=== PATIENT | female | born 1985 | race Caucasian/White ===

== ENCOUNTER 2019-12-20 14:43 | Emergency (ER) | payer OTHER ==
[~2019-12-20] VITALS: Ht 165.1 cm; Wt 82.0 kg
--- NOTE | 2019-12-20 15:12 | RAD ---
Three-view right wrist HISTORY: Pain status post fall AP lateral oblique views Visualized osseous and appear normal. IMPRESSION: No acute findings. Electronically signed by: Abdelrahman Fernando III, MD (12/20/2019 3:09 PM) [id number]
[2019-12-20 15:35] VITALS: BP 126/79
--- NOTE | 2019-12-20 15:52 | PHYS DOC ---
General Adult EDM: Chief Complaint: WRIST PAIN HPI: HPI: 34-year-old female past medical history significant for restless leg syndrome, asthma and GERD, presents to the ED with complaints of (dominant) right hand wrist pain after patient had an accidental fall at work, landed backwards onto flexed wrist. Complains of pain to her right lateral distal wrist. No prior injury surgery to this joint. Takes no AC. ROS: No associated fever, chills, deformity, sensory or neurologic deficit, skin lesion or laceration, elbow pain, shoulder pain, head injury, dyspnea, sore throat, cough, nausea, vomiting, chest pain, loss of consciousness not, no neck pain or midline back pain. Physical Exam: PE: Constitutional: Well developed, well nourished, no acute distress, non-toxic appearance. [] HENT: Normocephalic, atraumatic, bilateral external ears normal, oropharynx mo ist, no oral exudates, nose normal. No signs of head trauma, no midline neck pain Eyes: PERRLA, EOMI, conjunctiva normal, no discharge. [] Neck: Normal range of motion, no tenderness, supple, no stridor. [] Cardiovascular:Heart rate regular rhythm, no murmur [] Lungs & Thorax: Bilateral breath sounds clear to auscultation [] Abdomen: Bowel sounds normal, soft, no tenderness, no masses, no pulsatile m asses. [] Skin: Warm, dry, no erythema, no rash. [] Back: No tenderness, no CVA tenderness. [] Extremities: No tenderness, no cyanosis, no clubbing, right dorsal wrist swelling with right lateral tenderness to palpation over radius, no scaphoid or lunate tenderness, wrist/fingers with full range of motion, no pain at the elbow Neurologic: Alert and oriented X 3, normal motor function, normal sensory function, no focal deficits noted. [] Psychologic: Affect normal, judgement normal, mood normal. [] EKG: EKG: [] Radiology/Procedures: Radiology/Procedures: IMAGING REPORT Signed PATIENT: TACHO CHILEL ACCOUNT: [id number] : 1985 LOCATION: ER AGE: 34 SEX: F EXAM STATUS: REG ER ORD. PHYSICIAN: MARYBETH PICKARD DO REASON: fall PROCEDURE: WRIST 3V RIGHT Three-view right wrist HISTORY: Pain status post fall AP lateral oblique views Visualized osseous and appear normal. IMPRESSION: No acute findings. Electronically signed by: Anette Yañez III, MD (12/20/2019 3:09 PM) [id number] DICTATED AND SIGNED BY: ANETTE YAÑEZ III, MD DATE: 12/20/19 1509 CC: CHANG SCHROEDER MD; MARYBETH PICKARD DO ~ Impressions: Concern for right dominant hand wrist sprain, no fracture on x-ray. For splint given to patient and recommended repeat imaging if pain persists after 7 to 10 days. Also recommended hand surgery outpatient if pain persists. Strict ED return precautions given for compartment syndrome, neurologic deficits or severe pain. All of patient's questions were answered and she was stable at time of discharge. I spoken with the patient and her caregivers. I explained the patient's condition, diagnoses and treatment plan based on the information available to me at this time. I have answered the patient and her caregiver's questions and addressed any concerns. The patient and her caregivers have a good understanding of patient's diagnosis, condition and treatment plan as can be expected at this point. Vital signs have been stable. Patient's condition is stable and appropriate for discharge from the emergency department. Patient will pursue further outpatient evaluation with primary care physician or other designated or consulting physician as outlined in the discharge instructions. The patient and/or caregivers are agreeable to this plan of care and follow-up instructions have been explained in detail. The patient and/or caregivers have received these instructions in written form and have expressed an understanding of the discharge instructions. The patient and/or caregivers are aware that any significant change of condition or worsening of symptoms should prompt immediate return to this or the closest emergency department or call to 911. Course & Med Decision Making: Course & Med Decision Making Pertinent Labs and Imaging studies reviewed. (See chart for details) Dragon Disclaimer: [place]ito Disclaimer: This electronic medical record was generated, in whole or in part, using a voice recognition dictation system. Departure Departure: Impression: Primary Impression: Right wrist injury Disposition: HOME, SELF-CARE Condition: STABLE Referrals: CHANG SCHROEDER MD (PCP) Patient Instructions: Wrist Sprain with [facility] MARYBETH PICKARD DO December 20, 2019 15:52
== END 2019-12-20 15:55 | disposition home or self-care (01) ==
LOC: ER 14:43
DX: S69.81XA Other specified injuries of right wrist, hand and finger(s), initial encounter (principal); J45.909 Unspecified asthma, uncomplicated; K21.9 Gastro-esophageal reflux disease without esophagitis; W18.39XA Other fall on same level, initial encounter; Y93.89 Activity, other specified; Y92.89 Other specified places as the place of occurrence of the external cause; Y99.8 Other external cause status
CPT/HCPCS: 29125; 73110; 99283